=== PATIENT | female | born 1955 | race Caucasian/White ===

== ENCOUNTER → 2020-07-13 10:35 | Outpatient (CLI) | payer MEDICARE, MEDICAID, SELFPAY | PROVIDERS: PCP Family Medicine; Visit Provider Nurse Practitioner | DX: Z03.818 Encounter for observation for suspected exposure to other biological agents ruled out (principal) | CPT/HCPCS: U0003 ==

== ENCOUNTER 2020-09-03 12:33 | Emergency (ER) | payer MEDICARE, MEDICAID, SELFPAY ==
--- NOTE | 2020-09-03 12:40 | XR_ITS ---
PROCEDURE: XR SHOULDER LT MIN 2V Referring Doctor: Joel Debbie Patient Age:65Y CLINICAL INDICATION: FALL Fell on a porch with left shoulder pain limited range of motion due to pain COMPARISON: No exams were available for comparison FINDINGS: The glenohumeral joint intact. The neck and head of left humerus intact no fracture at the shoulder joint itself The AC joint is generous in width of measuring just over 5 mm.. Arthritic changes here with some spurring superiorly from the distal clavicle with minimal fragmentation/dystrophic calcification at the superior margin of left AC joint.. Most likely these features reflect old degenerative changes, most likely it is intact but there is focal pain at the AC joint consider AC joint views with and without weights to further evaluate The upper left ribs left lung apex satisfactory. Scapula unremarkable. The degenerative changes developing at the lower C-spine noted IMPRESSION: . The glenohumeral joint intact. ++Humeral head and neck intact Degenerative changes with generous width of the AC joint most likely old feature. However if there is focal pain specifically at the AC joint may want to consider follow-up AC joint views with and without weights to evaluate for any acute feature Dictated by: Sushil Terrazas MD 09/03/2020 13:12 Sushil Terrazas MD in [place] 09/03/2020 13:12
[2020-09-03 12:43] VITALS: BP 151/95; PULSE 75; RESP 18; TEMP 36.6; O2SAT 99; BMI 23.5
--- NOTE | 2020-09-03 13:13 | HMH.EDUTC ---
[facility] [place] Disposition Clinical Impression: Separation of left acromioclavicular joint Qualifiers: Encounter type: initial encounter Qualified Code(s): S43.102A - Unspecified dislocation of left acromioclavicular joint, initial encounter Disposition: Home, Self-Care Condition on Discharge: Good Instructions: DI for AC Joint Separation Additional Instructions: Follow up with orthopedics tomorrow Prescriptions: Naproxen [Naproxen 500mg tab] 500 mg PO BID 3 Days #6 tab Transmission Status: Pending to [facility] Referrals: Ramirez Chand [Primary Care Provider] - Rick Stapleton MD [Staff Physician] - Time of Disposition: 13:17 Medical Decision Making - Chalo Inquiry Pt receiving controlled substance: No Vital Signs: 09/03/20 12:43 Temperature 97.9 F Temperature Source Oral Pulse Rate [Radial] 75 Respiratory Rate 18 Blood Pressure [Right Arm] 151/95 H Blood Pressure Mean [Right Arm] 113 Blood Pressure Source [Right Arm] Automatic Cuff Blood Pressure Position [Right Arm] Sitting 02 Sat by Pulse Oximetry 99 Oxygen Delivery Method Room Air Orders (Tests/Meds): ORDERS Category Date Time Status XR shoulder LT min 2V Stat Exams 09/03/20 12:40 Taken - Radiology Data #1 Image(s): Shoulder Image Reviewed: Yes I reviewed the patient's radiology image Preliminary Findings: Abnormal (ac joint separation) [facility] [place] HPI - General Stated complaint: ao [id number] injury L shoulder Time Seen by Provider: 09/03/20 13:00 Mode of Arrival: Ambulatory Source of Information: Patient Limitations: No Limitations Description of Symptoms (Recalled from Triage Doc. by RN): fell on the porch yesterday and hurt left shoulder. HEENT Symptoms (Recalled from RN notes): No Resp Symptoms (Recalled from RN notes): No Skin Symptoms (Recalled from RN notes): No MS Symptoms (Recalled from RN notes): Yes Functional Status (Recalled from RN notes): wnl - History of Present Illness Provider Complaint: Patient fell on porch last night and landed on left shoulder. She is left handed. She cannot lift her left arm. No previous injury to shoulder. Onset (ago): day(s) (1) Location: left, upper extremity Radiation: non-radiation Relieving factors: none Exacerbating factors: movement Treatments prior to arrival: none - Related Data Home Medications Medication Instructions Recorded Confirmed Buspirone HCl [Buspar 10mg 10 mg PO BID 11/19/18 11/24/18 tablet] Gabapentin 600 mg PO DAILY 11/19/18 11/24/18 Isosorbide Mononitrate [Imdur 60mg 60 mg PO DAILY 11/19/18 11/24/18 ER tablet] Metformin HCl [Fortamet] 500 mg PO DAILY 11/19/18 11/24/18 Metoprolol Tartrate 50 mg PO DAILY 11/19/18 11/24/18 Simvastatin 80 mg PO DAILY 11/19/18 11/24/18 clonazePAM [Clonazepam] 1 mg PO BID 11/19/18 11/24/18 raNITIdine HCL [Ranitidine HCl] 150 mg PO DAILY 11/19/18 11/24/18 Previous Rx's Medication Instructions Recorded Naproxen [Naproxen 500mg tab] 500 mg PO BID 3 Days #6 tab 09/03/20 Allergies Allergy/AdvReac Type Severity Reaction Status Date / Time acetaminophen Allergy Unknown Verified 11/24/18 15:07 codeine Allergy Unknown Verified 11/24/18 15:07 - Worker's Comp Is this a Worker's Comp case?: No [facility] History - Hepatitis A Screen Drug use history?: No High risk sexual behaviors?: No History of sexually transmitted infection?: No Currently employed?: No Childcare worker?: No Do you have indoor plumbing?: Yes Do you have electricity?: Yes Attestation statement:: This patient has been screened for Hepatitis A risk factors. I have reviewed the patient's past medical history: Yes Medical History: Reports:: Diabetes Mellitus Type 2, Seizures Denies:: Diabetes Mellitus Type 1, Internal Pacemaker, Lung Disease Other Surgeries: Yes: Cardiac Catheterization, Hysterectomy-Total, Other. No: Pacemaker - Social History Smoking Status: Current every day smoker Tobacco Type: cigarettes # Packs/Day (ciga
[2020-09-03 13:33] VITALS: BP 151/95; PULSE 75; RESP 18; TEMP 36.6; O2SAT 99
== END 2020-09-03 13:34 | disposition home or self-care (01) ==
PROVIDERS: Emergency Provider Physician Assistant; PCP Family Medicine
DX: S43.102A Unspecified dislocation of left acromioclavicular joint, initial encounter (principal); W01.0XXA Fall on same level from slipping, tripping and stumbling without subsequent striking against object, initial encounter; Y92.019 Unspecified place in single-family (private) house as the place of occurrence of the external cause; E11.9 Type 2 diabetes mellitus without complications; G40.909 Epilepsy, unspecified, not intractable, without status epilepticus; E78.5 Hyperlipidemia, unspecified; Z88.6 Allergy status to analgesic agent; F17.210 Nicotine dependence, cigarettes, uncomplicated; Z79.899 Other long term (current) drug therapy
CPT/HCPCS: G0463; 73030; 96372; 99202

== ENCOUNTER → 2020-09-08 10:16 | Outpatient (CLI) | payer MEDICARE, MEDICAID, SELFPAY ==
--- NOTE | 2020-09-08 10:24 | XR_ITS ---
PROCEDURE: XR SHOULDER LT MIN 2V CLINICAL INDICATION: LT shoulder AC seperation COMPARISON: CR XR SHOULDER LT MIN 2V from 09/03/2020 FINDINGS: Axillary view of the left shoulder shows no evidence glenohumeral or acromioclavicular dislocation. There are mild osteoarthritic changes of the glenohumeral joint. IMPRESSION: Mild osteoarthritis otherwise negative Dictated by: Gilberto Ray MD 09/08/2020 18:12 Gilberto Ray MD in [place] 09/08/2020 18:12
== END ==
PROVIDERS: PCP Family Medicine; Visit Provider Orthopaedic Surgery
DX: S43.102A Unspecified dislocation of left acromioclavicular joint, initial encounter (principal)
CPT/HCPCS: 73030

== ENCOUNTER → 2020-09-15 07:41 | Outpatient (CLI) | payer MEDICARE, MEDICAID, SELFPAY ==
--- NOTE | 2020-09-15 07:41 | MR_ITS ---
PROCEDURE: MR SHOULDER LT WO CON CLINICAL INDICATION: LT shoulder left shoulder pain, injury with pain the COMPARISON: CR XR SHOULDER LT MIN 2V from 09/03/2020 CR XR SHOULDER LT MIN 2V from 09/08/2020 TECHNIQUE: Routine multiplanar multi echo sequences are performed without gadolinium enhancement. FINDINGS: Osteoarthritic changes are present involving the acromioclavicular joint and glenohumeral joint with hypertrophic changes of the AC joint and a slightly high-riding humeral head. There is complete tear of the infraspinatus tendons with retraction of the musculotendinous fibers. Full-thickness tear also involves the supraspinatus tendon both anteriorly and posteriorly. There may be a few intact fibers centrally. heterogeneous signal intensity is present in the infra acromial region with mild hypertrophy of the inferior surface of the acromion. The bicipital tendon is in place. The subscapularis and teres minor tendons are intact. There is a shoulder joint effusion. Fluid signal is also present in the subacromial and subdeltoid region. Cortical regularity involves the surface of the greater tuberosity. No obvious labral tear. IMPRESSION: 1. There is complete tear of the infraspinatus tendon with retraction of the musculotendinous fibers. 2. There is a full-thickness tear of the supraspinatus tendon the with possible complete tear. There may be a few intact fibers centrally. 3. 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
== END ==
PROVIDERS: PCP Family Medicine; Visit Provider Orthopaedic Surgery
DX: S43.102A Unspecified dislocation of left acromioclavicular joint, initial encounter (principal)
CPT/HCPCS: 73221

== ENCOUNTER → 2020-12-15 10:33 | Outpatient (CLI) | payer MEDICARE, MEDICAID, SELFPAY ==
[2020-12-15 11:07] LABS: Basophils # 0.1 K/mm3 (0-0.2); Basophils % 0.9 % (0.1-2.0); Eosinophils # 0.1 K/mm3 (0.0-0.4); Eosinophils % 2.3 % (0.1-12.0); Hematocrit 40.5 % (37.0-47.0); Hemoglobin 13.6 g/dL (12.2-16.2); Lymphocytes # 2.3 K/mm3 (0.7-4.5); Lymphocytes % 37.4 % (10-50); Mean Corpuscular HGB Conc 33.5 g/dL (31.8-35.4); Mean Corpuscular Hemoglobin 34.7 pg (27.0-31.2); Mean Corpuscular Volume 103.6 fl (81-99); Mean Platelet Volume 8.2 fl (7.4-10.4); Monocytes # 0.4 K/mm3 (0.1-1.0); Neutrophils # 3.2 K/mm3 (1.8-7.8); Neutrophils % 52.3 % (37.0-80.0); Platelet Count 216 K/mm3 (142-424); Red Blood Count 3.91 M/mm3 (4.20-5.40); Red Cell Distribution Width 14.2 % (11.5-17.5); White Blood Count 6.1 K/mm3 (4.8-10.8)
[2020-12-15 11:32] LABS: Chloride 104 mmol/L (98-107); Potassium 4.9 mmoL/L (3.5-5.1); Sodium 136 mmol/L (136-145)
[2020-12-15 11:35] LABS: Anion Gap 10.9 mEq/L (5-15); Blood Urea Nitrogen 19 mg/dl (7-17); Calcium 9.3 mg/dl (8.4-10.2); Carbon Dioxide 26 mmol/L (22.0-30.0); Estimated Glomerular Filt Rate 55 ml/min (>60); GFR (African American) 67 ML/MIN (>60); Glucose 95 mg/dl (74-100)
== END ==
PROVIDERS: Visit Provider Orthopaedic Surgery
DX: I10 Essential (primary) hypertension (principal); M75.100 Unspecified rotator cuff tear or rupture of unspecified shoulder, not specified as traumatic; S43.102A Unspecified dislocation of left acromioclavicular joint, initial encounter; Z01.818 Encounter for other preprocedural examination
CPT/HCPCS: 36415; 80048; 85025

== ENCOUNTER → 2020-12-20 10:32 | Outpatient (CLI) | payer MEDICARE, MEDICAID, SELFPAY ==
[2020-12-20 12:04] LABS: Coronavirus 19 IgG Antibody Negative (Negative); Coronavirus 19 IgM Antibody Negative (Negative)
== END ==
PROVIDERS: Visit Provider Orthopaedic Surgery
DX: Z01.818 Encounter for other preprocedural examination (principal); Z20.822 Contact with and (suspected) exposure to COVID-19; M25.512 Pain in left shoulder
CPT/HCPCS: 36415; 86328

== ENCOUNTER 2020-12-21 09:04 | Day surgery (SDC) | payer MEDICARE, MEDICAID, SELFPAY ==
[2020-12-19 12:13] VITALS: BMI 21.9
[2020-12-21] VITALS (13 sets, daily range): BP systolic 100–136; BP diastolic 54–77; PULSE 52–81; RESP 11–20; TEMP 36.1–36.6; O2SAT 93–99
--- NOTE | 2020-12-21 11:37 | P.PN_ITS ---
[facility] Anesthesia Checklist - Patient Identification Patient Identification: Arm Band - Structural Data Admitted From: Home Planned Operative Procedure/s: Shoulder arthroscopy Consent for Planned Operative Procedure(s) Verified: Yes - NPO Status Verified Time NPO: 00:00 - Additional verifications Anesthesia Reactions: No Hx Blood Transfusions: No Blood Transfusion Reaction: No - Airway Assessment C-Spine Mobility Assessed: Yes TMJ Mobility Assessed: Yes Dentition: Edentulous - Neurological Assessment Level of Consciousness: Awake, Alert, Appropriate Hx Seizures: Yes (Last sz two years ago) Numbness or tingling in extremities: No - Anesthesia Plan Anesthesia Risk discussed: Yes Anesthesia Plan: Verified ASA Class: III Anesthesia Type: General [facility] History I have reviewed the patient's past medical history: Yes Medical History: Reports:: Anxiety, Chronic Obstructive Pulmonary Disease (COPD), Coronary Artery Disease, Depression, Diabetes Mellitus Type 2, Hypertension, Seizures Denies:: Cancer, Diabetes Mellitus Type 1, Internal Pacemaker, MRSA *Have you ever received a pneumonia vaccine?: Yes *Have you received a flu vaccine this season?: Yes Other Medical History: Denies: Blood Transfusion Reaction Anesthesia experience/problems:: None Laterality Cases: Bilateral: Lumpectomy Other Surgeries: Yes: Cardiac Catheterization, Colonoscopy, Hysterectomy-Total, Other. No: Pacemaker Amputation: No Fractures: Yes - *Social History Last grade of school completed: 7th or 8th Smoking Status: Current every day smoker Tobacco Type: cigarettes # Packs/Day (cigarettes): 1 Alcohol Intake: never Substance Use Type: denies use *Occupational Status:: disabled Housing: house Household Members: spouse *Travel in the last 8 weeks: None - Psychiatric History Pschychiatric History:: Reports:: Anxiety, Depression Family Hx:: Heart Attack, Stroke, Diabetes
--- NOTE | 2020-12-21 15:34 | HMH.ANESI ---
[facility] Anesthesia Record Part I Intake, IV Amount: 900 Estimated blood loss (mL): 10 Urine output (mL): 0 Blood Pressure: 115/70 SaO2: 98 Pulse Rate: 64 Respiratory Rate: 11 Temperature: 97.0 F Patient is:: Awake Stable to PACU at:: 15:27
[2020-12-21 15:52] LABS: POC Glucose,Bedside 98 (70-110)
--- NOTE | 2020-12-21 16:36 | HMH.OPNOTE ---
Date of procedure: 12/21/20 Pre-op Diagnosis:: L shoulder: 1) long head of biceps tendinopathy 2) subacromial stenosis 3) rotator cuff tear Post-op Diagnosis:: L shoulder: 1) long head of biceps tendinopathy 2) subacromial stenosis 3) rotator cuff tear Procedure performed:: L shoulder arthroscopy with: 1) biceps tenotomy 2) subacromial decompression with acromioplasty 3) arthroscopic rotator cuff repair Surgeon:: Dorinda Fountain MD Detasseler(s):: Chantel Nickerson TIRE RECAPPING MACHINE OPERATOR:: Other (Rogerio Vidales) Anesthesia: GETA, regional (interscalene block) Estimated blood loss (mL): 10 Clinical Note:: 65-year-old [id number] female with a left shoulder injury sustained in August 2020. She fell on her porch, landing on her left side. She had significant pain in the shoulder was found to have a rotator cuff tear, suspected to be acute. She has a history of intermittent left shoulder pain but never this severe. No other injuries reported to the shoulder and no prior surgeries on the shoulder. She has been taking Tylenol and naproxen with no pain relief. She is a smoker. This is an acute to tendon tear in a patient who otherwise reported good use with no pain in the shoulder. She is diabetic and does smoke, which does not have good prognostic indications, but given her age and activity level I would recommend surgical intervention. I've discussed her higher risk of failure to heal or retear and have strongly encouraged smoking cessation. She was sent for medical and cardiac clearance, which was obtained. I discussed the procedure with the patient, the expected perioperative and long-term outcome. I discussed the risks of surgery with the patient, including but not limited to: bleeding, infection, neurovascular damage, compartment syndrome of the upper extremity and/or torso from fluid extravasation, risk of stroke from hypotensive anesthesia in the beachchair position, risk of RTC non-healing or retearing, risk of the RTC being irrepairable, risk of continued pain and post-operative stiffness, and the risk that additional procedures may be required in the future. The patient vocalized understanding of these risks and provided informed consent for the procedure. Operative findings:: implants: Arthrex Speed Bridge RTC repair system medial row: 4.75mm biocomposite SwiveLock C anchor x2 (with pre-loaded fibertape + fiberwire sutures) lateral row: 5.5mm biocomposite SwiveLock SP anchor x2 Operative note:: The patient was identified in preoperative holding and the L shoulder signed by myself. Consent was reviewed with the patient and all questions answered. Interscalene nerve block was performed by anesthesia and the patient was taken to the OR. She was placed supine on the operative table, 1 g Ancef infused and general anesthesia induced. The patient was then positioned into the beachchair position with the head in a neutral position and well supported with all bony prominences padded. The L shoulder was then prepped and draped in the usual sterile fashion for shoulder arthroscopy. Timeout was performed, identifying the correct patient, correct procedure, and correct site. I began the procedure by making a standard posterior viewing portal through which a 30 degree arthroscope was inserted into the L shoulder. I began with a diagnostic scope of the glenohumeral joint. A significant amount of superior labral fraying was noted and a type II SLAP tear. Using a spinal needle and an outside-in technique an anterior working portal was established and a 7 mm cannula placed. Through this cannula a probe was placed and used to draw the biceps tendon further into the shoulder and further along its course it was seen to be erythematous and significantly degenerated. The proximal-most portion of the tendon just prior to the anchor was partially torn/frayed. Arthroscopic scissors were used to perform a biceps tenotomy; the tendon was transected at its anchor. Yady allen
[2020-12-22 11:30] LABS: POC Glucose,Bedside 96 (70-110)
[2020-12-22 15:36] VITALS: BP 116/71; PULSE 60; TEMP 36.2
--- NOTE | 2020-12-22 15:36 | HMH.ANESII ---
[facility] Anesthesia Record Part II Discharge Time: 16:24 Destination: Surgical Day Care (OP Surgery) PACU nurse assessment reviewed?: Yes Patient Condition:: Good Anesthesia Complications:: None Swallowing reflex intact?: Yes Cyanosis?: No Blood Pressure: 116/71 Pulse Rate: 60 Temperature: 97.2 F Mental Status: Alert & Oriented Pain level:: 0 Nausea and/or vomitting:: None Intake, IV Amount: 0
== END 2020-12-21 17:10 | disposition home or self-care (01) ==
PROVIDERS: PCP Family Medicine; Visit Provider Orthopaedic Surgery
PROC: (CPT 29805; principal; 2020-12-21 10:45)
DX: S46.012A Strain of muscle(s) and tendon(s) of the rotator cuff of left shoulder, initial encounter (principal); S46.112A Strain of muscle, fascia and tendon of long head of biceps, left arm, initial encounter; W17.89XA Other fall from one level to another, initial encounter; S43.432A Superior glenoid labrum lesion of left shoulder, initial encounter; E11.9 Type 2 diabetes mellitus without complications; M19.012 Primary osteoarthritis, left shoulder; Y92.018 Other place in single-family (private) house as the place of occurrence of the external cause; Z79.84 Long term (current) use of oral hypoglycemic drugs
CPT/HCPCS: 29826; 29827; 29828; 82962; 96374; C1713; J2710

== ENCOUNTER 2021-04-10 11:00 | Outpatient (RCR) | payer MEDICARE, MEDICAID, SELFPAY ==
--- NOTE | 2021-01-04 08:56 | HMH.OTOPEV ---
OT Inpatient Evaluation Rehab OT Outpatient Eval Start: 01/04/21 08:37 Freq: Status: Active Protocol: Document 01/04/21 08:38 ALFREDA (Rec: 01/04/21 08:47 RENETTAAMADO [id number]) Electronically Signed By Le Cordova, OT 01/04/21 08:38 Outpatient Therapy Subjective History Subjective History 65 year old female had a fall back in September of 2020 resulting in complete tear of the infraspinatus tendon with retraction of the musculotendinous fibers, full- thickness tear of the supraspinatus tendon the with possible complete tear. 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 X-ray to L shoulder revealed mild osteoarthritis. On 12/21/20, Patient underwent L shoulder arthroscopy with:1) biceps tenotomy, 2) subacromial decompression with acromioplasty and 3) arthroscopic rotator cuff repair. 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 Symptom Type Ache,Throb Symptoms Relieved By Nothing Symptoms Aggravated By Prone,Physical Activity Prior Functional Limitations None Current Functional Limitations Reaching,Lifting Symptom Description Constant and Continuous Level of pain today (0-10) 2 Pain scale - at its best (0-10) 2 Pain scale - at its worst (0-10) 7 Shoulder/Elbow Eval Shoulder Objective Measurements Shoulder ROM Left Shoulder Abduction Active Range of 10 Motion (degrees) Shoulder Flexion Active Range of Motion 20 (degrees) Query Text: Shoulder External Rotation Active Range 10 of Motion (degrees) Shoulder Internal Rotation Active Range 50 of Motion (degrees) pain with active ROM shoulder exam left standard Shoulder MMT Shoulder Abduction Strength Grade 2+ Poor+ Shoulder Extension Strength Grade 2+ Poor+ Shoulder Flexion Strength Grade 2+ Poor+ Shoulder Horizontal Abduction Strength 2+ Poor+ Grade Shoulde
--- NOTE | 2021-02-06 14:59 | HMH.RHREAS ---
Rehab Reassessment Rehab OP Re-assessment Start: 02/06/21 14:47 Freq: Status: Active Protocol: Document 02/06/21 14:48 FEMIDE (Rec: 02/06/21 14:59 ALFREDA [id number]) Electronically Signed By Le Cordova OT 02/06/21 14:48 Rehab Re-assessment Subjective Subjective I can't move my shoulder. Objective Objective Notes Since SOC, Patient has participate in skilled OP OT services of manual therapeutic stretching, AAROM, AROM and strengthening of L UE shoulder after s/p L shoulder arthroscopy; biceps tenotomy, subacromial decompression and rotator cuff repair. Patient is currently 8 weeks out this week. OT introduced Patient in advance strengthening this date to improve AROM mobility. HEP provided. Teach back successful. 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
== END 2021-04-24 14:51 | disposition home or self-care (01) ==
LOC: OT 11:00
PROVIDERS: PCP Family Medicine; Visit Provider Orthopaedic Surgery
DX: S46.822A Laceration of other muscles, fascia and tendons at shoulder and upper arm level, left arm, initial encounter (principal); S46.022A Laceration of muscle(s) and tendon(s) of the rotator cuff of left shoulder, initial encounter
CPT/HCPCS: 97010; 97014; 97110; 97140; 97164; 97165; 97530; G0283

== ENCOUNTER → 2021-04-11 08:47 | Outpatient (CLI) | payer MEDICARE, MEDICAID, SELFPAY ==
--- NOTE | 2021-04-11 08:52 | XR_ITS ---
PROCEDURE: XR SHOULDER LT MIN 2V CLINICAL INDICATION: left shoulder sx; postop Follow-up surgery COMPARISON: CR XR SHOULDER LT MIN 2V from 09/03/2020 CR XR SHOULDER LT MIN 2V from 09/08/2020 FINDINGS: S/p left shoulder surgery. There is high-riding humeral head with severe subacromial stenosis. There are 2 anchor screws along the humeral head centrally. Acromioclavicular arthropathy noted. IMPRESSION: Postsurgical changes with high-riding humeral head and severe subacromial stenosis with acromioclavicular arthropathy. Dictated by: Gilberto Ray MD 04/11/2021 11:12 Gilberto Ray MD in [place] 04/11/2021 11:12
== END ==
PROVIDERS: PCP Family Medicine; Visit Provider Orthopaedic Surgery
DX: Z09 Encounter for follow-up examination after completed treatment for conditions other than malignant neoplasm (principal)
CPT/HCPCS: 73030

== ENCOUNTER → 2021-04-16 13:35 | Outpatient (CLI) | payer MEDICARE, MEDICAID, SELFPAY ==
[2021-04-16 14:54] LABS: Blood Urea Nitrogen 14 mg/dl (7-17); Estimated Glomerular Filt Rate 72 ml/min (>60); GFR (African American) 87 ML/MIN (>60)
== END ==
PROVIDERS: Visit Provider Orthopaedic Surgery
DX: M25.512 Pain in left shoulder (principal)
CPT/HCPCS: 36415; 82565; 84520

== ENCOUNTER → 2021-04-17 08:17 | Outpatient (CLI) | payer MEDICARE, MEDICAID, SELFPAY ==
--- NOTE | 2021-04-17 08:17 | MR_ITS ---
PROCEDURE INFORMATION: Exam: MR Left Upper Extremity Joint Without and With Contrast; Shoulder Exam date and time: 04/17/2021 8:17 AM Age: 65 years old Clinical indication: Pain; Shoulder; Left; Prior surgery; Surgery date: 1-6 months; Additional info: SX 12/21/20 w/ schwmattel; Still in a lot of pain. Prior HX shoulder surgery. Limited rom. Weakness in arm. 13ml prohance given. Lot: [id number] exp: Nov 2022. Bun: 14 cre: 0.8 gfr: 72 prior MR 09-15-20 TECHNIQUE: Imaging protocol: MR of the Left upper extremity without and with contrast. Exam focused on the shoulder. Contrast material: PROHANCE; Contrast volume: 13 ml; Contrast route: IV; COMPARISON: 1. MR SHOULDER LT WO CON 09/15/2020 7:59 AM 2. CR XR SHOULDER LT MIN 2V 04/11/2021 8:59 AM 3. CR XR SHOULDER LT MIN 2V 09/08/2020 10:27 AM FINDINGS: Limitations: Motion artifact. Bones and cartilage: Surgical tracks in the humeral head are consistent with interval rotator cuff repair. The undersurface of the acromion is flattened, suggestive of prior acromioplasty. Joint spaces: There is mild primary osteoarthritis of the acromioclavicular joint. A large effusion involves the glenohumeral joint. Joint fluid extends through the full thickness rotator cuff tear into the subacromial-subdeltoid bursa. Glenoid labrum: Abnormal signal and morphology of the labrum in a patient of this age likely represents degenerative tearing. Supraspinatus tendon: There is a full-thickness retear of the entire supraspinatus tendon with retraction to near the level of the glenoid. Infraspinatus tendon: A near full-thickness retear involves the infraspinatus tendon with a few of the bursal surface and inferior fibers potentially remaining intact. Subscapularis tendon: Severe tendinosis involves the subscapularis tendon. Teres minor tendon: No tear or significant tendinosis involves the teres minor tendon. Tendon of biceps brachii: The intra-articular portion of the long head of the biceps tendon is not visualized. Nonvisualization may be due to rupture, severe tendinosis or interval tenodesis. Glenohumeral ligaments: Unremarkable. Muscles: The supraspinatus muscle demonstrates minimal atrophy with mild edema and atrophy of the infraspinatus muscle. Soft tissues: Unremarkable. IMPRESSION: 1. Full-thickness retear of the entire supraspinatus tendon with retraction to near the level of the glenoid. 2. Full-thickness retear of the majority of the infraspinatus tendon with a few intact bursal and inferior fibers. 3. Severe subscapularis tendinosis. 4. Predominantly non-visualized long head of the biceps tendon, which may be due to tenodesis, rupture, or severe tendinosis. 5. Mild primary osteoarthritis of the acromioclavicular joint. 6. Abnormal signal and morphology of the glenoid labrum, likely representing degenerative tearing. 7. Large glenohumeral joint effusion.
== END ==
PROVIDERS: PCP Family Medicine; Visit Provider Orthopaedic Surgery
DX: Z09 Encounter for follow-up examination after completed treatment for conditions other than malignant neoplasm (principal); M25.512 Pain in left shoulder
CPT/HCPCS: 73223; A9576

== ENCOUNTER → 2021-06-21 10:45 | Outpatient (CLI) | payer MEDICARE, MEDICAID, SELFPAY ==
[2021-06-21 10:48] LABS: Microscopic, Urine URINE MICROSCOPIC (MICROSCOPIC)
[2021-06-21 11:17] LABS: Appearance,Urine CLEAR (Clear); Bilirubin,Urine Negative (Negative); Blood, Urine Negative (Negative); Color,Urine YELLOW (Yellow); Glucose,Urine (UA) Negative (Negative); Ketones,Urine Negative (Negative); Leukocyte Esterase,Urine Negative (Negative); Nitrate,Urine Negative (Negative); Protein,Urine Negative (Negative); Urobilinogen,Urine 0.2 EU/dl (0.2)
== END ==
PROVIDERS: Visit Provider Orthopaedic Surgery
DX: Z01.812 Encounter for preprocedural laboratory examination (principal); M25.512 Pain in left shoulder
CPT/HCPCS: 81001

== ENCOUNTER → 2022-05-14 10:25 | Outpatient (CLI) | payer MEDICARE, MEDICAID, SELFPAY ==
--- NOTE | 2022-05-14 10:31 | XR_ITS ---
FINAL REPORT CLINICAL HISTORY: pain at right ischial loop; fall 2 days ago FINDINGS: Right hip with pelvis There is no acute fracture or dislocation. There are mild degenerative changes of both hips. Vascular calcifications are present. IMPRESSION: No acute fracture. Should symptoms worsen or persist consider CT or MRI. Reviewed, Interpreted and Dictated by Fredis Madden III, MD Transcribed by Bello Vizcarra Authenticated and [facility]
--- NOTE | 2022-05-14 10:31 | XR_ITS ---
FINAL REPORT CLINICAL HISTORY: possible anterior dislocation left shoulder, COMPARISON: 04/11/2021 FINDINGS: LEFT SHOULDER Three views demonstrate no acute fracture or dislocation. Postoperative changes are seen in the humeral head. There is stable superior subluxation of the humerus. There are mild degenerative changes of the acromioclavicular and the glenohumeral joints. IMPRESSION: No acute process. Reviewed, Interpreted and Dictated by Fredis Madden III, MD Transcribed by Bello Vizcarra Authenticated and . [facility]
== END ==
PROVIDERS: PCP Family Medicine; Visit Provider Family Medicine
DX: S43.002A Unspecified subluxation of left shoulder joint, initial encounter (principal); R10.2 Pelvic and perineal pain; W19.XXXA Unspecified fall, initial encounter
CPT/HCPCS: 73030; 73502

== ENCOUNTER → 2022-05-30 08:26 | Outpatient (CLI) | payer MEDICARE, MEDICAID, SELFPAY ==
--- NOTE | 2022-05-30 08:30 | XR_ITS ---
FINAL REPORT CLINICAL HISTORY: shoulder pain COMPARISON: May 14, 2022 FINDINGS: Internal and external rotation views of the left shoulder were obtained. There is no fracture or dislocation. There are postoperative changes with surgical anchors in the humeral head. The humeral head is high riding suggesting rotator cuff injury. Soft tissues are normal. IMPRESSION: Postoperative changes with no acute osseous abnormality of the left shoulder. Reviewed, Interpreted and Dictated by Alisa Nunez MD Transcribed by Karime Silva Authenticated and '[facility]
== END ==
PROVIDERS: PCP Family Medicine; Visit Provider Orthopaedic Surgery
DX: M25.512 Pain in left shoulder (principal)
CPT/HCPCS: 73030

== ENCOUNTER 2022-07-16 14:55 | Emergency (ER) | payer MEDICARE, MEDICAID, SELFPAY ==
[2022-07-16] VITALS (11 sets, daily range): BP systolic 90–144; BP diastolic 56–116; PULSE 64–89; RESP 16–20; TEMP 36.6–37.1; O2SAT 94–98; BMI 22.4
[2022-07-16 15:32] LABS: Microscopic, Urine URINE MICROSCOPIC (MICROSCOPIC)
[2022-07-16 15:33] LABS: Appearance,Urine CLEAR (Clear); Bilirubin,Urine Negative (Negative); Blood, Urine Negative (Negative); Color,Urine YELLOW (Yellow); Glucose,Urine (UA) Negative (Negative); Ketones,Urine Negative (Negative); Leukocyte Esterase,Urine Negative (Negative); Nitrate,Urine Negative (Negative); PH,Urine 6.5 (5.0-8.5); Protein,Urine Negative (Negative); Specific Gravity, Urine <= 1.005 (1.005-1.030); Urobilinogen,Urine 0.2 EU/dl (0.2)
[2022-07-16 15:36] LABS: Basophils # 0.2 K/mm3 (0-0.2); Basophils % 3.2 % (0.1-2.0); Eosinophils # 0.2 K/mm3 (0.0-0.4); Eosinophils % 2.4 % (0.1-12.0); Hematocrit 44.6 % (37.0-47.0); Hemoglobin 14.3 g/dL (12.2-16.2); Lymphocytes # 2.4 K/mm3 (0.7-4.5); Lymphocytes % 36.1 % (10-50); Mean Corpuscular HGB Conc 32.1 g/dL (31.8-35.4); Mean Corpuscular Hemoglobin 33.6 pg (27.0-31.2); Mean Corpuscular Volume 104.6 fl (81-99); Mean Platelet Volume 8.8 fl (7.4-10.4); Monocytes # 0.4 K/mm3 (0.1-1.0); Monocytes % 5.9 % (1.7-9.3); Neutrophils # 3.5 K/mm3 (1.8-7.8); Neutrophils % 52.6 % (37.0-80.0); Platelet Count 193 K/mm3 (142-424); Red Blood Count 4.26 M/mm3 (4.20-5.40); Red Cell Distribution Width 14.7 % (11.5-17.5); White Blood Count 6.6 K/mm3 (4.8-10.8)
[2022-07-16 15:55] LABS: Chloride 93 mmol/L (98-107); Potassium 4.3 mmoL/L (3.5-5.1); Sodium 130 mmol/L (136-145)
[2022-07-16 15:57] LABS: Blood Urea Nitrogen 10 mg/dl (7-17); Creatinine Clearance Estimated 55 mL/min (50-200); Estimated Glomerular Filt Rate 83 ml/min (>60); GFR (African American) 101 ML/MIN (>60)
[2022-07-16 15:58] LABS: Alanine Aminotransferase 25 U/L (12-78); Albumin Level 4.7 g/dl (3.5-5.0); Albumin/Globulin Ratio 1.2 (1.1-1.8); Alkaline Phosphatase 85 U/L (38-126); Anion Gap 15.3 mEq/L (5-15); Aspartate Amino Transferase 56 U/L (14-36); Bilirubin,Total 0.8 mg/dl (0.2-1.3); Calcium 8.5 mg/dl (8.4-10.2); Carbon Dioxide 26 mmol/L (22.0-30.0); Glucose 82 mg/dl (74-100); Total Protein,Serum 8.7 g/dl (6.3-8.2)
[2022-07-16 16:07] LABS: Bacteria,Urine Trace /lpf; WBC,Urine Occasional #/hpf (0-3)
--- NOTE | 2022-07-16 16:49 | CT_ITS ---
PROCEDURE INFORMATION: Exam: CT Abdomen And Pelvis Without Contrast Exam date and time: 07/16/2022 4:55 PM Age: 66 years old Clinical indication: Abdominal pain; Flank; Left lower quadrant (llq); Prior surgery; Surgery date: 6+ months; Surgery type: Hysterectomy; Patient HX: Llq pain w lt back pain x days, nkt; Additional info: Left flank pain TECHNIQUE: Imaging protocol: Computed tomography of the abdomen and pelvis without contrast. Radiation optimization: All CT scans at this facility use at least one of these dose optimization techniques: automated exposure control; mA and/or kV adjustment per patient size (includes targeted exams where dose is matched to clinical indication); or iterative reconstruction. COMPARISON: CR XR HIP RT 2-3V W/PELVIS 05/14/2022 10:40 AM FINDINGS: Liver: Parenchymal enhancement is not evaluated without contrast. No hepatomegaly. Gallbladder and bile ducts: No calcified stones. No ductal dilation. Pancreas: Parenchymal enhancement is not evaluated without contrast. No ductal dilation. Spleen: There are multiple splenic calcifications likely on the basis of prior granulomatous exposure. Adrenal glands: No mass. Kidneys and ureters: Punctate nonobstructing renal calcifications versus vascular calcifications. No hydronephrosis. Stomach and bowel: No obstruction. No mucosal thickening. Appendix: No evidence of appendicitis. Intraperitoneal space: No free air. No significant fluid collection. Vasculature: Extensive calcified atherosclerosis. Lymph nodes: No enlarged lymph nodes. Urinary bladder: No acute abnormality. Reproductive: Status post hysterectomy. Bones/joints: Scoliosis with degenerative changes of the spine. No acute fracture. Soft tissues: Limited evaluation without contrast. No significant soft tissue swelling. IMPRESSION: No acute findings. Chronic and incidental findings described above.
--- NOTE | 2022-07-16 17:29 | [facility].EDGENADL ---
Discharge Plan Disposition Patient Disposition: Home, Self-Care Condition: Good Chief Complaint: Abdominal Pain Prescriptions Prescriptions: No Action lansoprazole 30 mg capsule,delayed release(DR/EC) 30 mg PO DAILY 90 Days Qty: 90 0RF metformin 500 mg tablet extended release 24 hr 500 mg PO HS 90 Days Qty: 90 0RF simvastatin 80 mg tablet 80 mg PO DAILY 90 Days Qty: 90 0RF gabapentin 600 mg tablet 600 mg PO TID Qty: 90 3RF clonazepam 1 mg tablet 1 mg PO BID Qty: 60 2RF meloxicam 15 mg tablet 15 mg PO HS 30 Days Qty: 30 3RF metoprolol succinate 50 mg tablet extended release 24 hr 50 mg PO DAILY 30 Days Qty: 30 3RF potassium chloride 10 mEq tablet extended release 10 meq PO BID buspirone 10 MG tablet 10 mg PO BID Referrals Follow up/Referrals: Sim Silva MD [Primary Care Provider] - See instructions Activity Restrictions/Add. Instructions Additional Instructions/Restrictions: Additional instructions for ABDOMINAL PAIN: See your physician as soon as possible for further evaluation. Return immediately if worsening abdominal pain, vomiting, shortness of breath, fever, vomiting of blood or abdominal distention. Clinical Impressions Clinical Impression: Abdominal pain, acute, left lower quadrant Instructions Patient Instructions: DI for Acute Abdominal Pain Discharge ED Provider: Rashad Stanley General Adult HPI General Chief complaint: Abdominal Pain Stated complaint: LT side lower back pain Time Seen by Provider: 07/16/22 17:25 Mode of Arrival: Ambulatory Source of Information: Patient Limitations: No Limitations Description of Symptoms (Recalled from ER Triage Doc. by RN): PT REPORTS SUDDEN ONSET INTERMITT SHARP LEFT FLANK PAIN THAT BEGAN YESTERDAY. History of Present Illness HPI narrative: 2-day history of left lower quadrant abdominal pain. She says it radiates down into her thigh and a little bit back around towards her back. No other associated symptoms: No fever, vomiting, diarrhea, constipation, urinary symptoms. No previous similar symptoms. Related Data Home Medications Medication Instructions Recorded Confirmed buspirone 10 mg tablet 10 mg PO BID anxiety 11/19/18 07/16/22 potassium chloride 10 mEq 10 meq PO BID Supplement 07/16/22 07/16/22 tablet,extended release Previous Rx's Medication Instructions Recorded lansoprazole 30 mg capsule,delayed 30 mg PO DAILY GERD 90 days #90 05/13/22 release caps metformin 500 mg tablet,extended 500 mg PO HS diabetes 90 days #90 05/13/22 release 24 hr tabs simvastatin 80 mg tablet 80 mg PO DAILY Cholesterol 90 days 05/13/22 #90 tabs gabapentin 600 mg tablet 600 mg PO TID Pain #90 tabs 05/24/22 clonazepam 1 mg tablet 1 mg PO BID anxiety #60 tabs 05/27/22 meloxicam 15 mg tablet 15 mg PO HS Pain 30 days #30 tabs 07/08/22 metoprolol succinate 50 mg 50 mg PO DAILY HTN 30 days #30 tabs 07/08/22 tablet,extended release 24 hr Allergies Allergy/AdvReac Type Severity Reaction Status Date / Time acetaminophen Allergy Unknown Verified 05/30/22 09:18 codeine Allergy Unknown Verified 05/30/22 09:18 [facility] Social History (Updated 05/31/22 @ 12:32 by Kuldip Dimas DO) Smoking Status: Current every day smoker tobacco type: cigarettes packs per day: 2 second hand exposure: Yes alcohol intake: never substance use type: denies use current occupational status: disabled Travel in the last 8 weeks: None household members: spouse and children housing: house current occupational exposures/hazards: No caffeine: Yes ROS Obtained: Yes Systems reviewed as appropriate & no additional complaints except as documented Constitutional Constitutional: Denies fever(s), Denies headache(s) and Denies weakness ENT Ears, Nose, Mouth, and Throat: Denies headache(s), Denies nasal discharge and Denies sore throat Cardiovascular Cardiovascular: Denies chest pain Respiratory
--- NOTE | 2022-07-16 18:28 | PC.NURSE ---
PT UPDATED AND MADE AWARE THAT WE ARE WAITING ON HER CT TO BE READ. PT REPORTS THAT HER PAIN IS GONE AND DENIES OTHER SYMPTOMS AT THIS TIME.
--- NOTE | 2022-07-16 18:46 | PC.NURSE ---
called radiology to get an update on ct scan, radiology contacting [facility] at this time
[2022-07-16 19:42] LABS: Lipase 218 U/L (23-300)
--- NOTE | 2022-07-17 11:10 | PC.NURSE ---
Dr. Stanley gave me verbal prescription orders for treatment of diverticulitis at approx 0950 today. Flagyl 500 mg PO TID x10 days Ciprofloxacin 500 mg PO x10 days Asked me to call and check on pt and inform her that even though her CT scan was negative yesterday in ER based on her clinical presentation he would like to treat pt for diverticulitis. 1106- spoke with pt, notified her that Dr. Stanley would like to treat her for diverticulitis based on her clinical presentation when he saw her yesterday. Pt reports still having soreness in her abd. Pt agreeable to treatment. Pt reports pharmacy is [facility] in [place]. Notified pt I will call in 2 antibiotic prescriptions for her. Pt verbalized understanding. 1109- Spoke with ying at [facility] in [place]. Prescription for Flagyl and Ciprofloxacin called in.
== END 2022-07-16 20:21 | disposition home or self-care (01) ==
PROVIDERS: Emergency Provider Emergency Medicine; PCP Family Medicine
DX: R10.32 Left lower quadrant pain (principal); Z79.899 Other long term (current) drug therapy; F41.9 Anxiety disorder, unspecified; Z88.6 Allergy status to analgesic agent; Z72.0 Tobacco use
CPT/HCPCS: 74176; 80053; 81001; 83690; 85025; 96374; 99284

== ENCOUNTER → 2023-02-05 17:23 | Outpatient (CLI) | payer MEDICARE, MEDICAID, SELFPAY ==
[2023-02-05 16:56] LABS: Basophils % 0.4 % (0.1-2.0); Eosinophils # 0.2 K/mm3 (0.0-0.4); Eosinophils % 3.1 % (0.1-12.0); Hemoglobin 12.7 g/dL (12.2-16.2); Lymphocytes # 1.8 K/mm3 (0.7-4.5); Mean Corpuscular HGB Conc 31.6 g/dL (31.8-35.4); Mean Corpuscular Hemoglobin 33.5 pg (27.0-31.2); Mean Corpuscular Volume 105.7 fl (81-99); Mean Platelet Volume 8.6 fl (7.4-10.4); Monocytes # 0.5 K/mm3 (0.1-1.0); Monocytes % 8.3 % (1.7-9.3); Neutrophils # 3.2 K/mm3 (1.8-7.8); Neutrophils % 56.1 % (37.0-80.0); Platelet Count 199 K/mm3 (142-424); Red Blood Count 3.78 M/mm3 (4.20-5.40); Red Cell Distribution Width 13.7 % (11.5-17.5); White Blood Count 5.8 K/mm3 (4.8-10.8)
[2023-02-05 17:06] LABS: Chloride 88 mmol/L (98-107); Potassium 4.7 mmoL/L (3.5-5.1); Sodium 127 mmol/L (136-145)
[2023-02-05 17:07] LABS: Creatinine,Urine Random 20 mg/dL (Not Estab.)
[2023-02-05 17:09] LABS: Alanine Aminotransferase 30 U/L (12-78); Albumin Level 3.7 g/dl (3.5-5.0); Albumin/Globulin Ratio 1.2 (1.1-1.8); Alkaline Phosphatase 75 U/L (38-126); Amphetamine/Metha Screen,Urine Negative ng/ml (<1000); Anion Gap 14.7 mEq/L (5-15); Aspartate Amino Transferase 42 U/L (14-36); Barbiturates Screen,Urine Negative ng/ml (<200); Bilirubin,Total 0.2 mg/dl (0.2-1.3); Blood Urea Nitrogen 11 mg/dl (7-17); Calcium 8.3 mg/dl (8.4-10.2); Carbon Dioxide 29 mmol/L (22.0-30.0); Cholesterol 98 mg/dl (140-200); Estimated Glomerular Filt Rate 71 ml/min (>60); GFR (African American) 86 ML/MIN (>60); Globulin 3.1 g/dL (1.3-3.2); Glucose 85 mg/dl (74-100); Total Protein,Serum 6.8 g/dl (6.3-8.2); Triglycerides 67 mg/dl (30-150); VLDL Cholesterol 13 mg/dL (0-40)
[2023-02-05 17:10] LABS: Benzodiazepines Screen,Urine Negative ng/ml (<200); Chol/HDL Ratio 2.6 (1-3.5); HDL Cholesterol 37 mg/dl (40-60)
[2023-02-05 17:11] LABS: Cannabinoid Screen,Urine Negative ng/ml (<50); Cocaine Screen,Urine Negative ng/ml (<300)
[2023-02-05 17:12] LABS: Methadone Screen,Urine Negative ng/ml (<300)
[2023-02-05 17:15] LABS: Opiate Screen,Urine Negative ng/ml (<300)
[2023-02-05 17:16] LABS: Phencyclidine Screen,Urine Negative ng/ml (<25)
[2023-02-05 17:17] LABS: Microalbumin < 6.000 mg/L (0-16.7)
[2023-02-05 17:27] LABS: Direct LDL Cholesterol 56.22 mg/dL (100-129)
[2023-02-05 17:34] LABS: Hemoglobin A1C 5.7 % (4.0-6.0)
[2023-02-05 17:40] LABS: Thyroid Stimulating Hormone 1.61 uIU/mL (0.465-4.68)
== END ==
PROVIDERS: PCP Family Medicine; Visit Provider Family Medicine
DX: I10 Essential (primary) hypertension (principal); E78.5 Hyperlipidemia, unspecified; Z00.00 Encounter for general adult medical examination without abnormal findings; R53.83 Other fatigue; E11.9 Type 2 diabetes mellitus without complications; G25.81 Restless legs syndrome; G89.29 Other chronic pain; Z79.84 Long term (current) use of oral hypoglycemic drugs; Z79.899 Other long term (current) drug therapy
CPT/HCPCS: 80053; 80061; 80305; 82043; 82570; 83036; 84443; 85025

== ENCOUNTER 2023-12-26 18:05 | Outpatient (CLI) | payer MEDICARE, MEDICAID, SELFPAY ==
[2023-12-26 16:17] LABS: Chloride 103 mmol/L (98-107); Potassium 4.4 mmoL/L (3.5-5.1); Sodium 137 mmol/L (136-145)
[2023-12-26 16:18] LABS: Basophils # 0.1 K/mm3 (0-0.2); Eosinophils # 0.2 K/mm3 (0.0-0.4); Eosinophils % 3.1 % (0.1-12.0); Hematocrit 41.8 % (37.0-47.0); Hemoglobin 12.9 g/dL (12.2-16.2); Lymphocytes # 1.5 K/mm3 (0.7-4.5); Lymphocytes % 23.6 % (10-50); Mean Corpuscular HGB Conc 30.9 g/dL (31.8-35.4); Mean Corpuscular Hemoglobin 33.4 pg (27.0-31.2); Mean Corpuscular Volume 108.1 fl (81-99); Mean Platelet Volume 9.1 fl (7.4-10.4); Monocytes # 0.5 K/mm3 (0.1-1.0); Monocytes % 7.1 % (1.7-9.3); Neutrophils # 4.2 K/mm3 (1.8-7.8); Neutrophils % 65.2 % (37.0-80.0); Platelet Count 232 K/mm3 (142-424); Red Blood Count 3.87 M/mm3 (4.20-5.40); Red Cell Distribution Width 14.8 % (11.5-17.5); White Blood Count 6.4 K/mm3 (4.8-10.8)
[2023-12-26 16:19] LABS: Blood Urea Nitrogen 8 mg/dl (7-17); Estimated Glomerular Filt Rate 83 ml/min (>60); GFR (African American) 100 ML/MIN (>60)
[2023-12-26 16:20] LABS: Alanine Aminotransferase 17 U/L (12-78); Albumin Level 3.9 g/dl (3.5-5.0); Albumin/Globulin Ratio 1.2 (1.1-1.8); Alkaline Phosphatase 101 U/L (38-126); Anion Gap 11.4 mEq/L (5-15); Aspartate Amino Transferase 31 U/L (14-36); Bilirubin,Total 0.3 mg/dl (0.2-1.3); Calcium 9.1 mg/dl (8.4-10.2); Carbon Dioxide 27 mmol/L (22.0-30.0); Chol/HDL Ratio 3.7 (1-3.5); Cholesterol 130 mg/dl (140-200); Globulin 3.2 g/dL (1.3-3.2); Glucose 99 mg/dl (74-100); HDL Cholesterol 35 mg/dl (40-60); Total Protein,Serum 7.1 g/dl (6.3-8.2); Triglycerides 94 mg/dl (30-150); VLDL Cholesterol 19 mg/dL (0-40)
[2023-12-26 16:31] LABS: Opiate Screen,Urine Negative ng/ml (<300); Phencyclidine Screen,Urine Negative ng/ml (<25)
[2023-12-26 16:33] LABS: Direct LDL Cholesterol 66.12 mg/dL (100-129)
[2023-12-26 16:38] LABS: Amphetamine/Metha Screen,Urine Negative ng/ml (<1000)
[2023-12-26 16:39] LABS: Barbiturates Screen,Urine Negative ng/ml (<200)
[2023-12-26 16:40] LABS: Benzodiazepines Screen,Urine Negative ng/ml (<200); Cannabinoid Screen,Urine Negative ng/ml (<50)
[2023-12-26 16:41] LABS: Cocaine Screen,Urine Negative ng/ml (<300)
[2023-12-26 16:42] LABS: Methadone Screen,Urine Negative ng/ml (<300)
== END 2023-12-26 23:59 ==
LOC: LAB.DROPOF 18:05
PROVIDERS: PCP Family Medicine; Visit Provider Family Medicine
DX: E11.9 Type 2 diabetes mellitus without complications (principal); E78.5 Hyperlipidemia, unspecified; Z79.899 Other long term (current) drug therapy; Z79.84 Long term (current) use of oral hypoglycemic drugs
CPT/HCPCS: 80053; 80061; 80307; 83036; 85025